=== PATIENT | female | born 1950 | race Caucasian/White ===

== ENCOUNTER → 2017-01-16 | Outpatient (CLI) | payer BC, OTHER ==
--- NOTE | ~2017-01-16 | CR63 ---
[facility] A Service of [facility] & [facility] RADIOLOGY TEXT RESULTS PATIENT: LISBET CEDILLO LOCATION: [facility] : 54 UNIT #: [id number] AGE: [address]: RACHEAL GUTIERREZ APRN SEX: F ORDER DR: [id number] [facility] [address] [place], [place] [address] [id number] O MR#: [id number] Acc #: [id number] NAME: LISBET CEDILLO : 1950 SEX: F STUDY DATE/TIME: 01/16/2017 9:41 UNIT: [facility] ROOM: STUDY DESCRIPTION: CR Chest 2 View Attending Physician: Racheal Gutierrez Referring Physician: Racheal Gutierrez Ordering Physician: Physician Non-Staff Primary Care Physician: Matthew Murillo M.D. MEDICAL IMAGING REPORT This report is preliminary unless electronic signature is present EXAM Two view chest HISTORY A 66-year-old woman, sore throat, cough, congestion and fever. Patient is smoker, short of breath. Symptoms x2 weeks. COMPARISON STUDIES None. FINDINGS PA and lateral chest views demonstrate normal cardiac size and configuration. Hilar structures and mediastinal contours are preserved. Lungs are hyperinflated with flattened diaphragms. There are no infiltrates. I see no lung mass and no effusion. IMPRESSION Rather pronounced pulmonary hyperinflation reflecting COPD. No acute finding Dictated by... Kei Sanders M.D. THIS IS AN ELECTRONICALLY VERIFIED REPORT Kei Sanders M.D. at 01/16/2017 3:03 PM Laura TD: 01/16/2017 13:50 JOB #: [id number] MEDICAL IMAGING REPORT Page 1 of 1 COPY
== END | disposition home or self-care (01) ==
LOC: CRAD 09:05
DX: J40 Bronchitis, not specified as acute or chronic (principal); J44.9 Chronic obstructive pulmonary disease, unspecified
CPT/HCPCS: 71020